=== PATIENT | female | born 1980 ===

== ENCOUNTER → 2017-04-15 | Outpatient (CLI) | payer OTHER | END | disposition home or self-care (01) | LOC: C.PAPS 15:00 | PROVIDERS: ATTEND Obstetrics & Gynecology | DX: Z12.4 Encounter for screening for malignant neoplasm of cervix (principal); Z33.1 Pregnant state, incidental; R87.616 Satisfactory cervical smear but lacking transformation zone ==

== ENCOUNTER → 2017-04-15 | Outpatient (CLI) | payer OTHER ==
[2017-04-19 01:31] LABS: CHLAMYDIA TRACH RNA*** NOT DETECTED (NOT DETECTED); GC (NEIS GONORRHOEAE)RNA** NOT DETECTED (NOT DETECTED)
== END | disposition home or self-care (01) ==
LOC: C.LABSPEC 14:42
PROVIDERS: ATTEND Obstetrics & Gynecology
DX: Z34.81 Encounter for supervision of other normal pregnancy, first trimester (principal)

== ENCOUNTER 2017-09-24 05:38 | Outpatient (CLI) | payer OTHER ==
[~2017-09-24] VITALS: Ht 162.6 cm; Wt 83.0 kg
[2017-09-24] MEDS ORDERED: PRENTAB40 (06:20)
[2017-09-24] MEDS ORDERED: DIPH25CA65 PO (06:20)
[2017-09-24] MEDS ORDERED: SERT25TA PO (06:20)
[2017-09-24 06:21] VITALS: Ht 162.6 cm; Wt 83.0 kg
[2017-09-24] MEDS ORDERED: NURSING VERBAL MED ORDER ONE (06:30)
[2017-09-24] MEDS: LACTATED RINGER'S 1000ML 1,000 ML IV SCH ×2 (06:40→08:03)
[2017-09-24] MEDS ORDERED: TERBUTALINE SULFATE 1 MG/ML VIAL ONE (07:29)
[2017-09-24] MEDS ORDERED: TERBUTALINE SULFATE 1 MG/ML VIAL SQ PRN (07:30)
--- NOTE | 2017-09-24 07:51 | HISTORY & PHYSICAL EXAMINATION ---
DATE OF ADMISSION: 09/24/2017 CHIEF COMPLAINT: Intrauterine at 32 weeks 2 days, contractions. HISTORY OF PRESENT ILLNESS: The patient is a 37-year-old 3, para 2 general health is good. is well dated with a first trimester ultrasound. She was also evaluated first trimester by maternal medicine specialist. She was placed on Concrete which she has been receiving weekly since 16 weeks. Her obstetrical history is as follows: First 2001 girl, 5 pounds 37 weeks, spontaneous vaginal delivery, 5 hour labor, pushed 1 hour. Second delivery 2004, girl, 5 pounds 36 weeks. She had premature dilatation of the cervix with this one, 5 hour labor, pushed for 1 hour. She has been followed closely in the office, been receiving Concrete weekly. Recently she claims of more pelvic pressure and contractions. She received Celestone for lung maturity on the and another injection on Tuesday the , 12 mg. She called early the morning of admission stated she was having frequent contractions and pressure and that she had been having them throughout the night. She was told to come to the hospital for evaluation. PAST MEDICAL HISTORY: Two children in good health. ALLERGIES: ALLERGIC TO CODEINE. PAST SURGICAL HISTORY: She had a breast augmentation. MEDICAL HISTORY: Noncontributory. SOCIAL HISTORY: No smoking. No alcohol intake. Works as a housewife. FAMILY HISTORY: Mom is 62, has epilepsy and she is overweight. Father at age 50 with myocardial infarction. She has one sister in good health. REVIEW OF SYSTEMS: HEAD: No symptoms of frequent or severe headaches. EYES: No symptoms of blurred vision, double vision. EARS: No symptoms of frequent ear infections, difficulty hearing. NOSE: No symptoms of frequent nosebleeds, difficulty breathing through her nose. THROAT: No symptoms of frequent or severe sore throat, difficulty swallowing. RESPIRATORY SYSTEM: No history of asthma, chest pain, shortness of breath. PHYSICAL EXAMINATION: GENERAL: Well-developed, well-nourished 37-year-old white female, alert, oriented x3 and cooperative in no acute distress, appears stated age. EYES: Conjunctivae are pink, sclerae white, no evidence of jaundice. EARS: Had normal light reflex bilaterally. NOSE: Had normal mucosa. Septum is midline. There were no polyps. THROAT: No erythema or evidence of infection. Teeth are in good state of repair. HEAD: Was normocephalic, normal distribution of hair. NECK: Supple. Trachea midline. Thyroid is not enlarged. There was no adenopathy appreciated. Both carotids are of good intensity. CHEST: Clear to auscultation and percussion. No wheezes, rales or rhonchi appreciated. HEART: Regular rhythm. S1, S2 were normal. PELVIC: Cervix was posterior, moderate in consistency 1 cm dilated, vertex presentation, -2 station. MUSCULOSKELETAL: Revealed no calf tenderness. IMPRESSIONS OF THIS CASE: Intrauterine 32 weeks 2 days, premature contractions.
[2017-09-24] MEDS ORDERED: NIFEdipine 10 MG CAP PO SCH (10:00)
--- NOTE | 2017-09-24 10:20 | Discharge Instructions ---
Discharge Instructions Date of Service Sep 24, 2017. Admission Reason for Admission: Check Rupture Discharge Discharge Diagnosis / Problem: cotractions Discharge Goals Goal(s): Continuing OB care Activity Recommendations Activity Limitations: per Instructions/Follow-up section . Instructions / Follow-Up Instructions / Follow-Up ACTIVITY RECOMMENDATIONS: See Labor Sheet. SPECIAL CARE INSTRUCTIONS: Call Doctor if: * Regular contractions every 5 minutes or greater than 5 contractions in one hour. * Bleeding * Water breaks or is leaking * Decreased movement * Fever >100.4 degrees F * Pain not relieved by routine measures or pain medication ordered. FOLLOW UP VISIT: Return to Labor and Delivery on for /call for appointment time . Follow-up Visit with: When: Current Hospital Diet Patient's current hospital diet: Regular Diet Discharge Diet Recommended Diet: Regular Diet Pending Studies Studies pending at discharge: no Medical Emergencies . Who to Call and When: Medical Emergencies: If at any time you feel your situation is an emergency, please call 911 immediately. . Non-Emergent Contact Non-Emergency issues call your: Portable Grinding Machine Operator Call Non-Emergent contact if: temperature is above 100.5 . . "Provider Documentation" section prepared by Thompson Mcfarland. . VTE Core Measure Inpt VTE Proph given/why not?: Treatment not indicated
== END 2017-09-24 12:35 | disposition home or self-care (01) ==
LOC: C.OPB 05:38 → C.LD 05:39 → C.OPB 12:35
PROVIDERS: ATTEND Obstetrics & Gynecology
DX: O60.03 Preterm labor without delivery, third trimester (principal); O09.523 Supervision of elderly multigravida, third trimester; Z3A.32 32 weeks gestation of pregnancy; Z82.49 Family history of ischemic heart disease and other diseases of the circulatory system

== ENCOUNTER → 2017-10-13 | Outpatient (CLI) | payer OTHER ==
[~2017-10-13] MED LIST: DIPH25CA65 PO; PRENTAB40; SERT25TA PO
== END | disposition home or self-care (01) ==
LOC: C.LABSPEC 14:58
PROVIDERS: ATTEND Obstetrics & Gynecology
DX: O09.513 Supervision of elderly primigravida, third trimester (principal); O60.03 Preterm labor without delivery, third trimester

== ENCOUNTER 2017-10-31 11:19 | Inpatient (IN) | payer OTHER ==
[~2017-10-31] VITALS: Ht 162.6 cm; Wt 88.5 kg
[2017-10-31] MEDS ORDERED: NURSING VERBAL MED ORDER STA (11:49)
[2017-10-31] MEDS ORDERED: PENICILLIN G POTASSIUM IV 6 MU in DEXTROSE 5% 250ML IV SCH (12:15)
[2017-10-31 12:21] LABS: HEMATOCRIT 36.9 % (37-47); HEMOGLOBIN 12.9 g/dL (12.0-16.0); MEAN CELL VOLUME 95.6 fL (80-100); MEAN CORPUSCULAR HEMOGLOBIN 33.4 pg (25-34); MEAN PLATELET VOLUME 9.2 fL (7.4-10.4); PLATELET COUNT 281 K/uL (130-400); RED CELL DISTRIBUTION WIDTH CV 13.3 % (11.5-14.5); RED CELL DISTRIBUTION WIDTH SD 46.1 fL (36.4-46.3); WHITE BLOOD COUNT 9.04 K/uL (4.8-10.8)
[2017-10-31] MEDS ORDERED: FENTANYL CITRATE INJ 50 MCG/1 ML 2 ML VIAL ONE (12:30)
[2017-10-31] MEDS ORDERED: EpHEDrine SULFATE INJ 50 MG/ML AMP ONE (12:30)
[2017-10-31] MEDS ORDERED: BUPIVACAINE 0.25% 30 ML VIAL ONE (12:30)
[2017-10-31] MEDS ORDERED: FENTANYL 2MCG/ML ROPIV 1.25MG/ML 100ML BAG EPI ONE (12:31)
[2017-10-31] MEDS ORDERED: NALOXONE HCL INJ 1 MG in SODIUM CHLORIDE 0.9% 1000ML 1,000 ML IV PRN (13:17)
[2017-10-31] MEDS ORDERED: LACTATED RINGER'S 1000ML 500 ML IV PRN ×2 (13:17→13:38)
[2017-10-31] MEDS ORDERED: FENTANYL 2MCG/ML ROPIV 1.25MG/ML 100ML BAG EPI PRN (13:30)
[2017-10-31] MEDS ORDERED: ONDANSETRON INJ 2 MG/ML 2 ML VIAL IV PRN (13:30)
[2017-10-31] MEDS ORDERED: NALBUPHINE HCL INJ 10 MG/ML AMP IV PRN (13:30)
[2017-10-31] MEDS ORDERED: DiphenhydrAMINE HCL 50 MG/ML VIAL IV PRN (13:30)
[2017-10-31] MEDS ORDERED: EpHEDrine SULFATE INJ 50 MG/ML AMP IV PRN (13:30)
[2017-10-31] MEDS ORDERED: NALOXONE HCL INJ 0.4 MG/1 ML VIAL/CARP IV PRN (13:30)
[2017-10-31] MEDS ORDERED: OXYTOCIN 30 UNITS/500ML NSS IV PRN ×2 (13:45→18:45)
[2017-10-31 15:44] VITALS: Ht 162.6 cm; Wt 88.5 kg
[2017-10-31] MEDS ORDERED: PENICILLIN G POTASSIUM IV 3 MU in DEXTROSE 5% 100ML IV PRN (16:15)
[2017-10-31] MEDS ORDERED: DIPHTHERIA/TETANUS/PERTUSSIS 0.5 ML SYR/VIAL IM. ONE (18:45)
[2017-10-31] MEDS ORDERED: BENZOCAINE 20% AER SPR 82.5 GM CAN EXT PRN (18:45)
[2017-10-31] MEDS ORDERED: LANOLIN OINT EXT PRN (18:45)
[2017-10-31] MEDS ORDERED: ACETAMINOPHEN 325 MG TAB PO PRN (18:45)
[2017-10-31] MEDS ORDERED: OXYCODONE/ACETAMINOPHEN 5-325 TAB PO PRN (18:45)
[2017-10-31] MEDS ORDERED: SUPERCREAM 0.870 % 15GM JAR EXT PRN (18:45)
[2017-10-31] MEDS ORDERED: HYDROCORTISONE ACETATE 25 MG SUPP PR PRN (18:45)
--- NOTE | 2017-10-31 19:05 | Anesthesia Procedure Note ---
Anesthesia Epidural Removal Nt Date & Time Oct 31, 2017 at 19:05 Vital Signs Pain Intensity: 0.0 Notes Mental Status: alert / awake / arousable, participated in evaluation Nausea / Vomiting: adequately controlled Pain: adequately controlled Airway Patency, RR, SpO2: stable & adequate BP & HR: stable & adequate Hydration State: stable & adequate Neuraxial Anesthesia: was administered Anesthetic Complications: no major complications apparent, pt satisfied with anesthetic care Epidural: removed without complications, with tip intact
--- NOTE | 2017-10-31 20:16 | DELIVERY SUMMARY ---
DATE OF OPERATION: 10/31/2017 The patient is a 37-year-old 3, para 2, good general health. She was on spironolactone and doxycycline 100 mg twice a day. STATES SHE IS ALLERGIC TO CODEINE WHICH GIVES HER HIVES. Last menstrual period was 02/11/2017 and her due date confirmed by first trimester ultrasound was 11/17/2017. She had a course which was complicated by high risk for premature labor. Her prior deliveries had been at 37 weeks and 36 weeks. For this she was evaluated by maternal medicine and she was placed on Helotes weekly injections. Her cervix did dilate up early. She had a lot of lower pelvic pain and pressure for about 2-3 weeks. She was admitted for premature labor on 09/20/2017 at which time she had no cervical funneling and eventually her contractions stopped and she was discharged home. She was taking Procardia 10 mg every 4 hours. Eventually she was able to stop the Procardia. We stopped that at about 35 weeks. She did complain of lot of pelvic pain and pressure and sporadic contractions; however, the contractions never got regular. The day, she was seen in the office, her cervix was about 5 cm dilated and she started having bleeding. She was sent to maternity where after she was admitted she requested and received epidural anesthesia. She obtained good pain relief. She was immediately started on penicillin. We gave her initial dose of IV penicillin. Then waited, gave her a second dose and then after her second dose with Pitocin running, we ruptured the membranes at about 6 cm. After rupture of membranes, fluid was clear. She went to full dilatation and just with several pushes, pushed out a live male infant via direct occiput anterior position. I did cut a small midline episiotomy. shoulders were delivered without difficulty. Cord was clamped, cut by the father. Cord blood was taken. With IV Pitocin running, the placenta was removed intact. Uterus contracted nicely. Hemostasis was good. I repaired a small first degree laceration with a deep suture of 2-0 Vicryl to approximate the bulbocavernosus muscle, approximated the vaginal mucosa out and to beyond the hymenal ring, did a running subcuticular suture on the perineal skin edges. Following this, vaginal examination revealed no hematoma formation or sponges in the vagina. Hemostasis was good. Estimated blood loss was 200 mL. My own estimation 1 and 5 minute Apgars were 8 and 9 respectively. I attest to the content of the Intraoperative Record and any orders documented therein. Any exception s are noted below.
[2017-10-31 21:45] VITALS: BP 137/80; PULSE 89; TEMP 36.8
[2017-10-31] MEDS: DOCUSATE SODIUM 100 MG CAP PO SCH (22:08)
[2017-10-31] MEDS: IBUPROFEN 600 MG TAB PO PRN (22:09)
[2017-11-01 00:40] VITALS: BP 119/75; PULSE 67; TEMP 36.5; O2SAT 96
[2017-11-01 03:10] VITALS: BP 122/79; PULSE 68; TEMP 36.4; O2SAT 96
[2017-11-01] MEDS: IBUPROFEN 600 MG TAB PO PRN ×5 (03:13→23:15)
[2017-11-01 07:19] LABS: HEMATOCRIT 34.9 % (37-47); HEMOGLOBIN 12.1 g/dL (12.0-16.0)
[2017-11-01] MEDS: FERROUS SULFATE 325 MG TAB PO SCH (07:47)
[2017-11-01] MEDS: PRENATAL VITAMIN TAB PO SCH (07:47)
[2017-11-01] MEDS: DOCUSATE SODIUM 100 MG CAP PO SCH ×2 (07:48→20:00)
[2017-11-01 07:50] VITALS: BP 122/75; PULSE 67; TEMP 36.6
--- NOTE | 2017-11-01 08:52 | Progress Note ---
Subjective Nov 01, 2017. Subjective conversation w/ patient Ambulation: ambulating normally Voiding: no voiding problems Passing Gas: Yes Diet Tolerance: Regular Diet Lochia: Small Feeding Type: Breast Feeding Review of Systems Constitutional: + fever Objective Vital Signs Date Time Temp Pulse Resp B/P (MAP) Pulse Ox O2 Delivery O2 Flow Rate FiO2 11/01/17 07:50 Room Air 11/01/17 07:50 36.6 67 18 122/75 (91) Room Air 11/01/17 03:10 36.4 68 18 122/79 (93) 96 Room Air 11/01/17 00:40 96 Room Air 11/01/17 00:40 36.5 67 18 119/75 (90) 96 Room Air 10/31/17 21:45 Room Air 10/31/17 21:45 36.8 89 18 137/80 (99) Room Air Physical Exam General Appearance: WELL-APPEARING Abdomen: non tender Fundus: Firm, Non-Tender Extremities: no pedal edema, no calf tenderness Laboratory Results Last 24 Hours Test 10/31/17 12:02 11/01/17 06:43 White Blood Count 9.04 K/uL Red Blood Count 3.86 M/uL Hemoglobin 12.9 g/dL 12.1 g/dL Hematocrit 36.9 % 34.9 % Mean Corpuscular Volume 95.6 fL Mean Corpuscular Hemoglobin 33.4 pg Mean Corpuscular Hemoglobin Concent 35.0 g/dl RDW Standard Deviation 46.1 fL RDW Coefficient of Variation 13.3 % Platelet Count 281 K/uL Mean Platelet Volume 9.2 fL Assessment and Plan Post- Day#: 1
[2017-11-01 11:45] VITALS: BP 116/73; PULSE 67; TEMP 36.8
[2017-11-01 15:15] VITALS: BP 126/78; PULSE 71; TEMP 36.8
[2017-11-01] MEDS ORDERED: BISACODYL 5 MG TABEC PO SCH (20:00)
[2017-11-01 23:15] VITALS: BP 121/79; PULSE 75; TEMP 36.5; O2SAT 96
[2017-11-02] MEDS: IBUPROFEN 600 MG TAB PO PRN ×2 (05:32→10:18)
[2017-11-02] MEDS ORDERED: BISACODYL 10 MG SUPP PR PRN (07:00)
[2017-11-02 08:00] VITALS: BP 125/83; PULSE 69; TEMP 36.6
[2017-11-02] MEDS: PRENATAL VITAMIN TAB PO SCH (08:31)
[2017-11-02] MEDS: FERROUS SULFATE 325 MG TAB PO SCH (08:31)
[2017-11-02] MEDS: DOCUSATE SODIUM 100 MG CAP PO SCH (08:31)
[2017-11-02 11:08] VITALS: BP_DIAS 83; PULSE 69; TEMP 36.6
--- NOTE | 2017-11-02 12:52 | Discharge Instructions ---
Discharge Instructions Date of Service Nov 02, 2017. Admission Reason for Admission: Check Labor Discharge Discharge Diagnosis / Problem: avtive labor Discharge Goals Goal(s): Routine recovery after delivery Activity Recommendations Activity Limitations: as noted below ACTIVITY RECOMMENDATIONS: * Gradual return to full activity over the next 2-3 weeks. * No lifting - nothing heavier than baby over the next 2-3 weeks. * Do not engage in vigorous exercise, sexual activity or sports until cleared by your physician. * Do not drive or operate any motorized equipment until cleared by your physician. * You may shower/bathe daily. DIET: Resume Previous Diet If Breast-feeding: * Increase caloric intake by 500 calories, eat 3 well balanced meals, 2 high protein snacks a day and drink 6-8 8oz. glasses of fluid per day. BREAST CARE: If you are not breast feeding: * Wear a supportive bra 24 hours a day for one to two weeks. * Avoid stimulating your breasts and nipples as much as possible during the first few weeks after delivery. * When taking a shower, have the warm water hit your back, not breasts. * When your breasts feel full, apply ice packs. Usually three to four times a day helps ease the discomfort. * Take a mild pain medication (Tylenol / Motrin) when you are uncomfortable. If breast feeding: * Use breast milk to lubricate nipples. Lansinoh cream may be used for sore nipples. You do not need to remove cream prior to breast feeding. If using a different brand of cream, check the label for directions regarding removal of cream prior to nursing. * Wear a supportive bra. * If having problems with breasts or breast feeding, call a data virtualization consultant or your health care provider. OVER THE COUNTER MEDICATION: * For discomfort or pain, you may use Acetaminophen (Tylenol), Ibuprofen (Advil ), or Naproxen (Aleve) following the package directions. * For constipation you may use Colace following the package directions. SPECIAL CARE INSTRUCTIONS: * Vaginal rest (no tampons, douching, intercourse) until after doctor 's visit. * control as discussed with doctor. * Verbalizes understanding of car seat law as reviewed with patient nursing. * Car Seat hand-out given and reviewed with patient by nursing. * Shaken baby information reviewed with patient by nursing. Call you doctor if: * Temperature greater than or equal to 100.4 degrees F or 38.0 degrees C. Take your temperature twice daily for a week. * Bleeding becomes heavier than the heaviest part of your period - saturating a sanitary pad within an hour. * Passing large clots. * Bleeding has a foul smelling odor. * Signs and symptoms of phlebitis: leg pain, warm, red or swollen area on leg. * "Baby Blues" lasting longer than two weeks. ++ If you have had a and incision has increased pain, redness, swelling, presence of any drainage, or if the incision starts to open up. If you have any questions or concerns, call your health care practitioner at [phone]. FOLLOW-UP VISIT: Please call the office at to schedule a 6 week examination. . Instructions / Follow-Up Instructions / Follow-Up ACTIVITY RECOMMENDATIONS: * Gradual return to full activity over the next 2-3 weeks. * No lifting - nothing heavier than baby over the next 2-3 weeks. * Do not engage in vigorous exercise, sexual activity or sports until cleared by your physician. * Do not drive or operate any motorized equipment until cleared by your physician. * You may shower/bathe daily. DIET: Resume Previous Diet If Breast-feeding: * Increase caloric intake by 500 calories, eat 3 well balanced meals, 2 high protein snacks a day and drink 6-8 8oz. glasses of fluid per day. BREAST CARE: If you are not breast feeding: * Wear a supportive bra 24 hours a day for one to two weeks. * Avoid stimulating your breasts and nipples as much as possible during the first few weeks after delivery. * When taking a shower, have the warm water hit your back, not breasts. * When your breasts feel full, apply ice packs. Usually three to four times a day helps ease the discomfort. * Take a mild pain medication (Tylenol / Motrin) when you are uncomfortable. If breast feeding: * Use breast milk to lubricate nipples. Lansinoh cream may be used for sore nipples. You do not need to remove cream prior to breast feeding. If using a different brand of cream, check the label for directions regarding removal of cream prior to nursing. * Wear a supportive bra. * If having problems with breasts or breast feeding, call a data virtualization consultant or your health care provider. OVER THE COUNTER MEDICATION: * For discomfort or pain, you may use Acetaminophen (Tylenol), Ibuprofen (Advil ), or Naproxen (Aleve) following the package directions. * For constipation you may use Colace following the package directions. SPECIAL CARE INSTRUCTIONS: * Vaginal rest (no tampons, douching, intercourse) until after doctor 's visit. * control as discussed with doctor. * Verbalizes understanding of car seat law as reviewed with patient nursing. * Car Seat hand-out given and reviewed with patient by nursing. * Shaken baby information reviewed with patient by nursing. Call you doctor if: * Temperature greater than or equal to 100.4 degrees F or 38.0 degrees C. Take your temperature twice daily for a week. * Bleeding becomes heavier than the heaviest part of your period - saturating a sanitary pad within an hour. * Passing large clots. * Bleeding has a foul smelling odor. * Signs and symptoms of phlebitis: leg pain, warm, red or swollen area on leg. * "Baby Blues" lasting longer than two weeks. ++ If you have had a and incision has increased pain, redness, swelling, presence of any drainage, or if the incision starts to open up. If you have any questions or concerns, call your health care practitioner at [phone]. FOLLOW-UP VISIT: Please call the office at to schedule a 6 week examination. Current Hospital Diet Patient's current hospital diet: Regular Diet Discharge Diet Recommended Diet: Regular Diet Pending Studies Studies pending at discharge: no Medical Emergencies . Who to Call and When: Medical Emergencies: If at any time you feel your situation is an emergency, please call 911 immediately. . Non-Emergent Contact Non-Emergency issues call your: Dump Motor Operator Call Non-Emergent contact if: temperature is above 100.5 . . "Provider Documentation" section prepared by Thompson Mcfarland. .
== END 2017-11-02 14:09 | disposition home or self-care (01) | DRG 775 ==
LOC: C.LD 11:19 → C.OBG 21:58
PROVIDERS: ADMIT Obstetrics & Gynecology; ATTEND Obstetrics & Gynecology
DX: O70.0 First degree perineal laceration during delivery (principal); Z3A.37 37 weeks gestation of pregnancy; Z37.0 Single live birth; Z79.899 Other long term (current) drug therapy; Z88.5 Allergy status to narcotic agent

== ENCOUNTER → 2017-12-12 | Outpatient (CLI) | payer OTHER ==
[~2017-12-12] MED LIST changes: -DIPH25CA65 PO; -SERT25TA PO
== END | disposition home or self-care (01) ==
LOC: C.PAPS 15:27
PROVIDERS: ATTEND Obstetrics & Gynecology
DX: Z39.2 Encounter for routine postpartum follow-up (principal)